=== PATIENT | female | born 1995 | race Caucasian/White ===

== ENCOUNTER 2022-02-02 13:56 | Emergency (ER) | payer OTHER ==
[~2022-02-02 13:56] MED LIST: XULANE PATCH1 EACH TD; ZOFRAN4 MG PO
[2022-02-02 15:55] LABS: BASOPHIL 0.9 % (0-2); EOSINOPHIL 1.3 % (0-5); HCT 47.2 % (37.0-47.0); LYMPHOCYTE 30.9 % (15-48); MCH 31.7 pg (25.0-31.0); MCHC 33.9 g/dL (32.0-36.0); MCV 93.5 fL (78.0-100.0); MONOCYTE 6.5 % (0-12); MPV 9.5 fL (6.0-9.5); NEUTROPHIL 60.2 % (41-80); NRBC 0; PLT 326 K/uL (150-400); RBC 5.05 M/uL (4.20-5.40); RDW 12.2 % (11.5-14.0); WBC 8.9 K/uL (4.0-10.5)
[2022-02-02 15:56] LABS: BILIRUBIN NEGATIVE (NEGATIVE); BLOOD NEGATIVE Ery/uL (NEGATIVE); CLARITY CLEAR (CLEAR); COLOR YELLOW (YELLOW); GLUCOSE (U) NORMAL (NORMAL); LEUKOCYTES TRACE Leu/uL (NEGATIVE); NITRITE NEGATIVE (NEGATIVE); PROTEIN NEGATIVE (NEGATIVE); UROBILINOGEN 0.2 mg/dL (0.2-1.0)
[2022-02-02 16:02] LABS: BACTERIA TRACE; URINARY WBC RARE
[2022-02-02 16:13] LABS: BILIRUBIN - TOTAL 0.4 mg/dL (0.2-1.0); BUN/CREAT RATIO (CALC) 15.2 RATIO; CREATININE 0.79 mg/dL (0.51-0.95)
[2022-02-02] MEDS ORDERED: MIRALAX17 GM PO (19:07)
== END 2022-02-02 19:12 | disposition home or self-care (01) ==
LOC: FER 13:56
PROVIDERS: Physician Assistant
DX: K59.00 Constipation, unspecified (principal); Z28.310 Unvaccinated for COVID-19; Z88.1 Allergy status to other antibiotic agents
CPT/HCPCS: 36415; 74022; 80053; 81001; 83690; 85025